=== PATIENT | female | born 1985 | race American Indian/Alaskan Native ===

== ENCOUNTER 2018-02-08 12:38 | Emergency (ER) | payer SELFPAY ==
[2018-02-08 13:25] VITALS: BP 127/93
[2018-02-08] MEDS ORDERED: MOTRIN PO ONE (16:56)
[2018-02-08] MEDS ORDERED: ULTRAM PO ONE (16:57)
[2018-02-08] MEDS ORDERED: ROBAXIN PO ONE (17:00)
[2018-02-08] MEDS ORDERED: TETRACAINE 0.5% OD ONE (17:04)
[2018-02-08] MEDS ORDERED: FUL-GLO OP ONE (17:05)
--- NOTE | 2018-02-08 17:42 | Emergency Department Report ---
ED Eye Problem HPI - General Chief complaint: Eye Problems Stated complaint: EYE PAIN Time Seen by Provider: 02/08/18 16:52 Source: patient Mode of arrival: Ambulatory Limitations: No Limitations - History of Present Illness Initial comments: 32-year-old female presents to ED with complaints of right eye pain. Patient states she was driving earlier today and felt something fly into her right eye. Patient reports rubbing eye afterward. The patient now reports slight photophobia and blurred vision in right eye. chief complaint: eye pain, eye redness, foreign body -: This afternoon Onset Description: sudden Location: right eye Place: work Eye Symptoms: burning, redness, photophobia Severity: mild Consistency: constant - Related Data Home Medications Medication Instructions Recorded Confirmed Last Taken Ibuprofen [Motrin] 800 mg PO TID PRN 02/11/13 02/11/13 02/11/13 16:00 Previous Rx's Medication Instructions Recorded Last Taken Type Amoxicillin [Trimox CAP] 500 mg PO Q8H #30 capsule 02/11/13 Unknown Rx Erythromycin [Erythromycin Ophth 1 cm OU QID #1 tube 02/08/18 Unknown Rx Oint] Allergies Allergy/AdvReac Type Severity Reaction Status Date / Time No Known Allergies Allergy Verified 02/08/18 13:21 ED Review of Systems ROS: Stated complaint: EYE PAIN Other details as noted in HPI Comment: All other systems reviewed and negative Eyes: eye pain, other (blurred vision) Neurological: denies: headache ED Past Medical Hx - Past Medical History Hx Asthma: Yes - Social History Smoking Status: Never Smoker Substance Use Type: None - Medications Home Medications: Home Medications Medication Instructions Recorded Confirmed Last Taken Type Amoxicillin [Trimox CAP] 500 mg PO Q8H #30 capsule 02/11/13 Unknown Rx Ibuprofen [Motrin] 800 mg PO TID PRN 02/11/13 02/11/13 02/11/13 16:00 History Erythromycin [Erythromycin Ophth 1 cm OU QID #1 tube 02/08/18 Unknown Rx Oint] ED Physical Exam - General Limitations: No Limitations General appearance: alert, in no apparent distress - Head Head exam: Present: atraumatic, normocephalic - Eye Eye exam: Present: PERRL, EOMI, conjunctival injection (in right eye), other ( no foreign body present in eye; Rojas lamp exam w/ fluorescin stain shows scleral abrasion, no photophobia on exam) Pupils: Present: normal accommodation - ENT ENT exam: Present: mucous membranes moist - Neck Neck exam: Present: normal inspection - Respiratory Respiratory exam: Present: normal lung sounds bilaterally. Absent: respiratory distress - Cardiovascular Cardiovascular Exam: Present: regular rate, normal rhythm - GI/Abdominal GI/Abdominal exam: Present: soft. Absent: tenderness - Extremities Exam Extremities exam: Present: normal inspection - Neurological Exam Neurological exam: Present: alert, oriented X3 - Psychiatric Psychiatric exam: Present: normal affect, normal mood - Skin Skin exam: Present: warm, dry, intact, normal color ED Course Vital Signs 02/08/18 13:21 Temperature 98.7 F Pulse Rate 75 Respiratory 18 Rate Blood Pressure 127/93 O2 Sat by Pulse 98 Oximetry ED Medical Decision Making - Differential Diagnosis corneal abrasion, conjunctivitis, acute iritis Critical care attestation.: If time is entered above; I have spent that time in minutes in the direct care of this critically ill patient, excluding procedure time. ED Disposition Clinical Impression: Abrasion of sclera of right eye Disposition: DC-01 TO HOME OR SELFCARE Is pt being admited?: No Condition: Stable Instructions: Corneal Abrasion (ED) Prescriptions: Erythromycin [Erythromycin Ophth Oint] 1 cm OU QID #1 tube Referrals: PRIMARY CARE,MD [Primary Care Provider] - 3-5 Days Forms: Work/School Release Form(ED) Time of Disposition: 17:58
== END 2018-02-08 18:03 | disposition home or self-care (01) ==
LOC: ED 12:38
DX: S00.211A Abrasion of right eyelid and periocular area, initial encounter (principal); J45.909 Unspecified asthma, uncomplicated; W22.8XXA Striking against or struck by other objects, initial encounter; Y93.I9 Activity, other involving external motion; Y99.0 Civilian activity done for income or pay; Y92.69 Other specified industrial and construction area as the place of occurrence of the external cause
CPT/HCPCS: 99283

== ENCOUNTER 2018-10-03 14:56 | Emergency (ER) | payer BC ==
[2018-10-03 15:23] VITALS: BP 165/96
--- NOTE | 2018-10-03 15:23 | Emergency Department Report ---
Blank Doc - Documentation Documentation: 33 Y/O FEMALE PRESENTS TO ED C/O RIGHT FLANK PAIN WITH INCREASED URINARY FREQU ENCY PRECEDED BY DIARRHEA. NO FEVER OR CHEST. NO SOB.
[2018-10-03 15:51] LABS: Basophils # (Auto) 0.1 K/mm3 (0.0-0.1); Basophils % (Auto) 0.9 % (0.0-1.8); Eosinophils # (Auto) 0.5 K/mm3 (0.0-0.4); Hematocrit 41.8 % (30.3-42.9); Hemoglobin 13.9 gm/dl (10.1-14.3); Lymphocytes # (Auto) 1.8 K/mm3 (1.2-5.4); Lymphocytes % (Auto) 23.9 % (13.4-35.0); Mean Corpuscular HGB Conc 33 % (30-34); Mean Corpuscular Volume 89 fl (79-97); Monocytes # (Auto) 0.7 K/mm3 (0.0-0.8); Monocytes % (Auto) 9.6 % (0.0-7.3); Platelet Count 521 K/mm3 (140-440); Red Blood Count 4.68 M/mm3 (3.65-5.03); Red Cell Distribution Width 13.8 % (13.2-15.2)
[2018-10-03 16:13] LABS: Alanine Aminotransferase 13 units/L (7-56); Albumin 4.2 g/dL (3.9-5); BUN/Creatinine Ratio 16; Blood Urea Nitrogen 13 mg/dL (7-17); Hemolysis Index 34
[2018-10-03 16:57] LABS: Bacteria,Urine 1+ /HPF (Negative); Bilirubin,Urine NEG (Negative); Blood,Urine MOD (Negative); Color,Urine Yellow (Yellow); Mucus,Urine 1+ /HPF; Protein,Urine <15 mg/dL mg/dL (Negative)
[2018-10-03 17:04] LABS: HCG Qualitative,Urine Negative (Negative)
[2018-10-03] MEDS ORDERED: TORADOL IM ONE (18:57)
--- NOTE | 2018-10-03 19:03 | Emergency Department Report ---
ED Female HPI - General Chief complaint: Abdominal Pain Stated complaint: RT SIDE PAIN Time Seen by Provider: 10/03/18 15:20 Source: patient Mode of arrival: Ambulatory Limitations: No Limitations - History of Present Illness Initial comments: pt is s 33 y/o aaf who presents for urinary frequency and urgency x 3 days with mild right flank pain there is no hematuria no vaginal discharge no n/v no hx of renal stones. MD Complaint: dysuria Onset/Timin -: days(s) Severity: mild Severity scale (0 -10): 2 Quality: other (stinging ) Consistency: intermittent Improves with: none Worsens with: urination Are you Now?: No Last Menstrual Period: 09/27/18 EDC: 07/04/19 Associated Symptoms: dysuria - Related Data Sexually active: Yes Home Medications Medication Instructions Recorded Confirmed Last Taken Ibuprofen [Motrin] 800 mg PO TID PRN 02/11/13 02/11/13 02/11/13 16:00 Previous Rx's Medication Instructions Recorded Last Taken Type Amoxicillin [Trimox CAP] 500 mg PO Q8H #30 capsule 02/11/13 Unknown Rx Erythromycin [Erythromycin Ophth 1 cm OU QID #1 tube 02/08/18 Unknown Rx Oint] Ibuprofen 800 mg PO TID PRN #30 tablet 10/03/18 Unknown Rx Nitrofurantoin Monohyd/M-Cryst 100 mg PO BID 7 Days #14 capsule 10/03/18 Unknown Rx [Macrobid 100 mg Capsule] Allergies Allergy/AdvReac Type Severity Reaction Status Date / Time No Known Allergies Allergy Verified 02/08/18 13:21 ED Review of Systems ROS: Stated complaint: RT SIDE PAIN Other details as noted in HPI Constitutional: denies: chills, fever Eyes: denies: eye pain, eye discharge, vision change ENT: denies: ear pain, throat pain Respiratory: denies: cough, shortness of breath, wheezing Cardiovascular: denies: chest pain, palpitations Endocrine: no symptoms reported Gastrointestinal: denies: abdominal pain, nausea, diarrhea Genitourinary: urgency, dysuria, frequency. denies: hematuria, discharge, abnormal menses, dyspareunia Musculoskeletal: denies: back pain, joint swelling, arthralgia Skin: denies: rash, lesions Neurological: denies: headache, weakness, paresthesias Psychiatric: denies: anxiety, depression Hematological/Lymphatic: denies: easy bleeding, easy bruising ED Past Medical Hx - Past Medical History Previous Medical History?: Yes Hx Asthma: Yes - Surgical History Past Surgical History?: No - Social History Smoking Status: Never Smoker Substance Use Type: None - Medications Home Medications: Home Medications Medication Instructions Recorded Confirmed Last Taken Type Amoxicillin [Trimox CAP] 500 mg PO Q8H #30 capsule 02/11/13 Unknown Rx Ibuprofen [Motrin] 800 mg PO TID PRN 02/11/13 02/11/13 02/11/13 16:00 History Erythromycin [Erythromycin Ophth 1 cm OU QID #1 tube 02/08/18 Unknown Rx Oint] Ibuprofen 800 mg PO TID PRN #30 tablet 10/03/18 Unknown Rx Nitrofurantoin Monohyd/M-Cryst 100 mg PO BID 7 Days #14 capsule 10/03/18 Unknown Rx [Macrobid 100 mg Capsule] ED Physical Exam - General Limitations: No Limitations General appearance: alert, in no apparent distress - Head Head exam: Present: atraumatic, normocephalic - Eye Eye exam: Present: normal appearance, PERRL - ENT ENT exam: Present: mucous membranes moist - Neck Neck exam: Present: normal inspection - Respiratory Respiratory exam: Present: normal lung sounds bilaterally. Absent: respiratory distress - Cardiovascular Cardiovascular Exam: Present: regular rate, normal rhythm, normal heart sounds. Absent: systolic murmur, diastolic murmur, rubs, gallop - GI/Abdominal GI/Abdominal exam: Present: soft, normal bowel sounds. Absent: tenderness, guarding, rebound, rigid, bruit, hernia - Rectal Rectal exam: Present: deferred - Extremities Exam Extremities exam: Present: normal inspection, full ROM - Back Exam Back exam: Present: normal inspection, full ROM. Absent: tenderness, CVA tenderness (R), CVA tenderness (L), rash noted - Neurological Exam Neurological exam: Present: alert, oriented X3, CN II-XII intact, normal gait - Psychiatric Psychiatric exam: Present: normal affect - Skin Skin exam: Present: warm, dry, intact, normal color. Absent: rash ED Course Vital Signs 10/03/18 15:21 Temperature 98.3 F Pulse Rate 68 Respiratory 18 Rate Blood Pressure 165/96 O2 Sat by Pulse 96 Oximetry ED Medical Decision Making - Lab Data Result diagrams: 10/03/18 15:29 10/03/18 15:29 Labs 10/03/18 10/03/18 10/03/18 15:29 15:29 16:05 WBC 7.6 RBC 4.68 Hgb 13.9 Hct 41.8 MCV 89 MCH 30 MCHC 33 RDW 13.8 Plt Count 521 H Lymph % (Auto) 23.9 [place] % (Auto) 9.6 H Eos % (Auto) 6.0 H Baso % (Auto) 0.9 Lymph # 1.8 [place] # 0.7 Eos # 0.5 H Baso # 0.1 Seg Neutrophils % 59.6 Seg Neutrophils # 4.5 Sodium 139 Potassium 4.4 Chloride 100.7 Carbon Dioxide 27 Anion Gap 16 BUN 13 Creatinine 0.8 Estimated GFR > 60 BUN/Creatinine Ratio 16 Glucose 81 Calcium 10.0 Total Bilirubin 0.20 AST 16 ALT 13 Alkaline Phosphatase 106 Total Protein 7.6 Albumin 4.2 Albumin/Globulin Ratio 1.2 Lipase 32 Urine Color Yellow Urine Turbidity Slightly-cloudy Urine pH 6.0 Ur Specific [place] 1.028 Urine Protein <15 mg/dl Urine Glucose (UA) Neg Urine Ketones Neg Urine Blood Mod Urine Nitrite Neg Urine Bilirubin Neg Urine Urobilinogen 4.0 Ur Leukocyte Esterase Tr Urine WBC (Auto) 5.0 Urine RBC (Auto) 5.0 U Epithel Cells (Auto) 7.0 Urine Bacteria (Auto) 1+ Urine Mucus 1+ Urine HCG, Qual Negative - Medical Decision Making Ua: mild leuk, wbc, rbc, bacteria, hcg: neg , urinary frequency plan: macrobid ibuprofen, follow up with pcp in 2-3 days return to ed if symptoms worsen. Critical care attestation.: If time is entered above; I have spent that time in minutes in the direct care of this critically ill patient, excluding procedure time. ED Disposition Clinical Impression: UTI (urinary tract infection) Qualifiers: Urinary tract infection type: acute cystitis Hematuria presence: without hematuria Qualified Code(s): N30.00 - Acute cystitis without hematuria Disposition: TO HOME OR SELFCARE Is pt being admited?: No Does the pt Need Aspirin: No Condition: Stable Instructions: Abdominal Pain (ED) Prescriptions: Ibuprofen 800 mg PO TID PRN #30 tablet PRN Reason: pain Nitrofurantoin Monohyd/M-Cryst [Macrobid 100 mg Capsule] 100 mg PO BID 7 Days #14 capsule Referrals: [facility] [Outside] - 3-5 Days Forms: Work/School Release Form(ED) Time of Disposition: 19:10
[2018-10-03] MEDS ORDERED: IBUPROFEN PO ONE (19:10)
[2018-10-03] MEDS ORDERED: IBUPROFEN ONE (19:10)
== END 2018-10-03 19:26 | disposition home or self-care (01) ==
LOC: ED 14:56
DX: N30.00 Acute cystitis without hematuria (principal); J45.909 Unspecified asthma, uncomplicated
CPT/HCPCS: 36415; 80053; 81001; 81025; 83690; 85025; 99283; J1885

== ENCOUNTER 2019-05-14 21:41 | Emergency (ER) | payer BC ==
[2019-05-15 01:48] LABS: Basophils # (Auto) 0.1 K/mm3 (0.0-0.1); Basophils % (Auto) 1.2 % (0.0-1.8); Eosinophils # (Auto) 0.5 K/mm3 (0.0-0.4); Eosinophils % (Auto) 6.6 % (0.0-4.3); Hematocrit 42.1 % (30.3-42.9); Hemoglobin 14.1 gm/dl (10.1-14.3); Lymphocytes # (Auto) 2.4 K/mm3 (1.2-5.4); Lymphocytes % (Auto) 29.6 % (13.4-35.0); Mean Corpuscular HGB Conc 34 % (30-34); Mean Corpuscular Volume 88 fl (79-97); Monocytes # (Auto) 0.7 K/mm3 (0.0-0.8); Monocytes % (Auto) 8.4 % (0.0-7.3); Platelet Count 481 K/mm3 (140-440); Red Blood Count 4.77 M/mm3 (3.65-5.03); Red Cell Distribution Width 14.6 % (13.2-15.2)
[2019-05-15] MEDS ORDERED: medroxyPROGESTERone ACETATE 5 MG TAB PO SCH (03:00)
--- NOTE | 2019-05-15 05:26 | Emergency Department Report ---
ED Female HPI - General Chief complaint: Vaginal Bleeding Stated complaint: HAVE NOT BEEN ON CYCLE FOR A MONTH Source: patient Mode of arrival: Ambulatory Limitations: No Limitations - History of Present Illness Initial comments: Patient is a nulliparous 33-year-old -Citizen Of [place] female with no past medical history who presents to the ED with persistent heavy vaginal bleeding for the last 2 months. Patient states that she is not on any control. Patient denies abdominal pain, dysuria, urinary frequency and urgency, headache, chest pain, shortness of breath, dizziness, vaginal discharge, low back pain, fever, chills, cough or sore throat. MD Complaint: vaginal bleeding -: Gradual, month(s) (2) Location: other (vaginal) Radiation: non-radiating Severity: moderate Quality: cramping, dull, aching Consistency: intermittent Improves with: none Worsens with: none Are you Now?: No Associated Symptoms: denies other symptoms, vaginal bleeding. denies: vaginal discharge, abdominal pain, nausea/vomiting, headaches, loss of appetite, dysuria, hematuria, rash, seizure, shortness of breath, other - Related Data Sexually active: Yes : 0 Para: 0 A: 0 Home Medications Medication Instructions Recorded Confirmed Last Taken Ibuprofen [Motrin] 800 mg PO TID PRN 02/11/13 02/11/13 02/11/13 16:00 Previous Rx's Medication Instructions Recorded Last Taken Type Amoxicillin [Trimox CAP] 500 mg PO Q8H #30 capsule 02/11/13 Unknown Rx Erythromycin [Erythromycin Ophth 1 cm OU QID #1 tube 02/08/18 Unknown Rx Oint] Ibuprofen [Ibuprofen 800] 800 mg PO TID PRN #30 tablet 10/03/18 Unknown Rx Nitrofurantoin Monohyd/M-Cryst 100 mg PO BID 7 Days #14 capsule 10/03/18 Unknown Rx [Macrobid 100 mg Capsule] medroxyPROGESTERone ACETATE 10 mg PO DAILY #10 tablet 05/15/19 Unknown Rx [Medroxyprogesterone Acetate] Allergies Allergy/AdvReac Type Severity Reaction Status Date / Time No Known Allergies Allergy Verified 02/08/18 13:21 ED Review of Systems ROS: Stated complaint: HAVE NOT BEEN ON CYCLE FOR A MONTH Other details as noted in HPI Constitutional: denies: chills, fever Eyes: denies: eye pain, eye discharge, vision change ENT: denies: ear pain, throat pain Respiratory: denies: cough, shortness of breath, wheezing Cardiovascular: denies: chest pain, palpitations Endocrine: no symptoms reported Gastrointestinal: denies: abdominal pain, nausea, diarrhea Genitourinary: abnormal menses (vaginal bleeding). denies: urgency, dysuria, discharge Musculoskeletal: denies: back pain, joint swelling, arthralgia Skin: denies: rash, lesions Neurological: denies: headache, weakness, paresthesias Psychiatric: denies: anxiety, depression Hematological/Lymphatic: denies: easy bleeding, easy bruising ED Past Medical Hx - Past Medical History Previous Medical History?: Yes Hx Asthma: Yes Additional medical history: Obesity - Surgical History Past Surgical History?: No - Social History Smoking Status: Current Some Day Smoker Substance Use Type: None - Medications Home Medications: Home Medications Medication Instructions Recorded Confirmed Last Taken Type Amoxicillin [Trimox CAP] 500 mg PO Q8H #30 capsule 02/11/13 Unknown Rx Ibuprofen [Motrin] 800 mg PO TID PRN 02/11/13 02/11/13 02/11/13 16:00 History Erythromycin [Erythromycin Ophth 1 cm OU QID #1 tube 02/08/18 Unknown Rx Oint] Ibuprofen [Ibuprofen 800] 800 mg PO TID PRN #30 tablet 10/03/18 Unknown Rx Nitrofurantoin Monohyd/M-Cryst 100 mg PO BID 7 Days #14 capsule 10/03/18 Unknown Rx [Macrobid 100 mg Capsule] medroxyPROGESTERone ACETATE 10 mg PO DAILY #10 tablet 05/15/19 Unknown Rx [Medroxyprogesterone Acetate] ED Physical Exam - General Limitations: No Limitations General appearance: alert, in no apparent distress - Head Head exam: Present: atraumatic, normocephalic, normal inspection - Eye Eye exam: Present: normal appearance, PERRL, EOMI Pupils: Present: normal accommodation - ENT ENT exam: Present: normal exam, normal orophraynx, mucous membranes moist, TM's normal bilaterally, normal external ear exam - Neck Neck exam: Present: normal inspection, full ROM - Respiratory Respiratory exam: Present: normal lung sounds bilaterally. Absent: respiratory distress, wheezes, rhonchi, stridor, chest wall tenderness, accessory muscle use, decreased breath sounds - Cardiovascular Cardiovascular Exam: Present: regular rate, normal rhythm, normal heart sounds. Absent: systolic murmur, diastolic murmur, rubs, gallop - GI/Abdominal GI/Abdominal exam: Present: soft, normal bowel sounds. Absent: tenderness, guarding, rebound, hyperactive bowel sounds, hypoactive bowel sounds, organomegaly - Bi-manual exam: Present: other (patient declined pelvic exam) - Extremities Exam Extremities exam: Present: normal inspection, full ROM, normal capillary refill - Back Exam Back exam: Present: normal inspection, full ROM. Absent: muscle spasm - Neurological Exam Neurological exam: Present: alert, oriented X3, CN II-XII intact, normal gait, reflexes normal - Psychiatric Psychiatric exam: Present: normal affect, normal mood - Skin Skin exam: Present: warm, dry, intact, normal color. Absent: rash ED Course Vital Signs 05/14/19 05/15/19 21:48 02:05 Temperature 98.2 F Pulse Rate 83 Respiratory 18 18 Rate Blood Pressure 139/85 O2 Sat by Pulse 97 Oximetry ED Medical Decision Making - Lab Data Result diagrams: 05/15/19 01:23 - Medical Decision Making This is a 33-year-old Citizen Of [place] female who is nulliparous and presented to the ED with persistent vaginal bleeding for 2 months. In the ED, patient is alert and oriented 3 and is not in distress. Lab test results show negative hCG test by urine. Other lab test results are nonactionable. Patient was treated initially with medroxyprogesterone oral tablet in the ED and was discharged home on medroxyprogesterone progesterone 10 mg daily for 10 days. Patient was advised to follow-up with [facility] [employer] [facility] physician in 7-10 days for reevaluation or return to the ED immediately if symptoms get worse. - Differential Diagnosis Dysfunctional uterine bleeding; Pelvic pain; UTI; Ovarian cyst Critical care attestation.: If time is entered above; I have spent that time in minutes in the direct care of this critically ill patient, excluding procedure time. ED Disposition Clinical Impression: Dysfunctional uterine hemorrhage Disposition: TO HOME OR SELFCARE Is pt being admited?: No Does the pt Need Aspirin: No Condition: Stable Instructions: Dysfunctional Uterine Bleeding (ED) Additional Instructions: Take medication is otherwise, follow-up with your [facility] physician in 7-10 days for reevaluation. Return to the ED immediately if symptoms get worse. Prescriptions: medroxyPROGESTERone ACETATE [Medroxyprogesterone Acetate] 10 mg PO DAILY #10 tablet Forms: Work/School Release Form(ED) Time of Disposition: 05:24 Print Language: LEBANESE
[2019-05-15 05:51] VITALS: BP 124/67
== END 2019-05-15 05:52 | disposition home or self-care (01) ==
LOC: ED 21:41
DX: N93.8 Other specified abnormal uterine and vaginal bleeding (principal); J45.909 Unspecified asthma, uncomplicated; F17.200 Nicotine dependence, unspecified, uncomplicated; Z79.899 Other long term (current) drug therapy
CPT/HCPCS: 36415; 84703; 85025; 86900; 86901

== ENCOUNTER 2021-08-18 14:28 | Emergency (ER) | payer SELFPAY ==
[2021-08-18 16:31] VITALS: BP 141/82
--- NOTE | 2021-08-18 18:39 | Emergency Department Report ---
ED General Adult HPI - General Chief complaint: Dental/Oral Stated complaint: TOOTH PAIN Source: patient Mode of arrival: Ambulatory Limitations: No Limitations - History of Present Illness Initial comments: Patient is a 36-year-old -[place] female with a history of asthma who presents to the ED with complaint of acute onset persistent left mandibular premolar molar toothache with swollen gums for the last 1 week, worse in the last 2 days. Patient states that she contacted her dentist who gave her a schedule visit to his office in 2 weeks time. Patient however states that in the last 24 hours, she has not been able to sleep or eat because of worsening pain. Patient denies dizziness, syncope, headache, chest pain, shortness of breath, fever, chills, sore throat, traumatic injury, nausea and vomiting or diarrhea and abdominal pain or neck pain. MD Complaint: left mandibular premolar and molar toothache; swollen gums -: Sudden, week(s) (1) Location: mouth Radiation: non-radiation Severity scale (0 -10): 7 Quality: aching, sharp Consistency: constant Improves with: none Worsens with: none Associated Symptoms: denies other symptoms. denies: confusion, chest pain, cough, diaphoresis, fever/chills, headaches, loss of appetite, malaise, nausea/vomiting, rash, seizure, shortness of breath, syncope, weakness Treatments Prior to Arrival: none - Related Data Home Medications Medication Instructions Recorded Confirmed Last Taken Ibuprofen [Motrin] 800 mg PO TID PRN 02/11/13 02/11/13 02/11/13 16:00 Previous Rx's Medication Instructions Recorded Last Taken Type Amoxicillin [Trimox CAP] 500 mg PO Q8H #30 capsule 02/11/13 Unknown Rx Erythromycin [Erythromycin Ophth 1 cm OU QID #1 tube 02/08/18 Unknown Rx Oint] Ibuprofen [Ibuprofen 800] 800 mg PO TID PRN #30 tablet 10/03/18 Unknown Rx Nitrofurantoin Monohyd/M-Cryst 100 mg PO BID 7 Days #14 capsule 10/03/18 Unknown Rx [Macrobid 100 mg Capsule] medroxyPROGESTERone ACETATE 10 mg PO DAILY #10 tablet 05/15/19 Unknown Rx [Medroxyprogesterone Acetate] Clindamycin [Clindamycin CAP] 300 mg PO Q8H #30 cap 08/18/21 Unknown Rx Ketorolac [Toradol] 10 mg PO Q8H PRN #20 tab 08/18/21 Unknown Rx traMADoL [Ultram] 50 mg PO Q6HR PRN #12 tablet 08/18/21 Unknown Rx Allergies Allergy/AdvReac Type Severity Reaction Status Date / Time No Known Allergies Allergy Verified 02/08/18 13:21 ED Review of Systems ROS: Stated complaint: TOOTH PAIN Other details as noted in HPI Constitutional: denies: chills, fever Eyes: denies: eye pain, eye discharge, vision change ENT: dental pain (Left mandibular premolar and molar toothache with swollen painful gums). denies: ear pain, throat pain Respiratory: denies: cough, shortness of breath, wheezing Cardiovascular: denies: chest pain, palpitations Endocrine: no symptoms reported Gastrointestinal: denies: abdominal pain, nausea, diarrhea Genitourinary: denies: urgency, dysuria, discharge Musculoskeletal: denies: back pain, joint swelling, arthralgia Skin: denies: rash, lesions Neurological: denies: headache, weakness, paresthesias Psychiatric: denies: anxiety, depression Hematological/Lymphatic: denies: easy bleeding, easy bruising ED Past Medical Hx - Past Medical History Previous Medical History?: Yes Hx Asthma: Yes Additional medical history: Obesity - Social History Smoking Status: Current Every Day Smoker Substance Use Type: Alcohol - Medications Home Medications: Home Medications Medication Instructions Recorded Confirmed Last Taken Type Amoxicillin [Trimox CAP] 500 mg PO Q8H #30 capsule 02/11/13 Unknown Rx Ibuprofen [Motrin] 800 mg PO TID PRN 02/11/13 02/11/13 02/11/13 16:00 History Erythromycin [Erythromycin Ophth 1 cm OU QID #1 tube 02/08/18 Unknown Rx Oint] Ibuprofen [Ibuprofen 800] 800 mg PO TID PRN #30 tablet 10/03/18 Unknown Rx Nitrofurantoin Monohyd/M-Cryst 100 mg PO BID 7 Days #14 capsule 10/03/18 Unknown Rx [Macrobid 100 mg Capsule] medroxyPROGESTERone ACETATE 10 mg PO DAILY #10 tablet 05/15/19 Unknown Rx [Medroxyprogesterone Acetate] Clindamycin [Clindamycin CAP] 300 mg PO Q8H #30 cap 08/18/21 Unknown Rx Ketorolac [Toradol] 10 mg PO Q8H PRN #20 tab 08/18/21 Unknown Rx traMADoL [Ultram] 50 mg PO Q6HR PRN #12 tablet 08/18/21 Unknown Rx ED Physical Exam - General Limitations: No Limitations General appearance: alert, in no apparent distress - Head Head exam: Present: atraumatic, normocephalic, normal inspection - Eye Eye exam: Present: normal appearance, PERRL, EOMI Pupils: Present: normal accommodation - ENT ENT exam: Present: mucous membranes moist, TM's normal bilaterally, normal external ear exam, other (Swollen, tender left mandibular gingiva with tender left mandibular premolar and molar teeth) - Neck Neck exam: Present: normal inspection, full ROM, lymphadenopathy - Respiratory Respiratory exam: Present: normal lung sounds bilaterally. Absent: respiratory distress, wheezes, rales, chest wall tenderness, accessory muscle use, decreased breath sounds, prolonged expiratory - Cardiovascular Cardiovascular Exam: Present: regular rate, normal rhythm, normal heart sounds. Absent: systolic murmur, diastolic murmur, rubs, gallop - GI/Abdominal GI/Abdominal exam: Present: soft, normal bowel sounds. Absent: tenderness, guarding, rebound, rigid, hyperactive bowel sounds, hypoactive bowel sounds, organomegaly - Extremities Exam Extremities exam: Present: normal inspection, full ROM, normal capillary refill. Absent: tenderness - Back Exam Back exam: Present: normal inspection, full ROM. Absent: tenderness, CVA tenderness (R), CVA tenderness (L), muscle spasm - Neurological Exam Neurological exam: Present: alert, oriented X3, CN II-XII intact, normal gait, reflexes normal - Psychiatric Psychiatric exam: Present: normal affect, normal mood - Skin Skin exam: Present: warm, dry, intact, normal color. Absent: rash ED Course Vital Signs 08/18/21 16:30 Temperature 97.7 F Pulse Rate 68 Respiratory 18 Rate Blood Pressure 141/82 [Right] O2 Sat by Pulse 98 Oximetry ED Medical Decision Making - Medical Decision Making This is a 36-year-old -[place] female with a history of asthma who presents to the ED with complaint of acute onset persistent left mandibular premolar molar toothache with swollen gums for the last 1 week, worse in the last 2 days. Patient states that she contacted her dentist who gave her a schedule visit to his office in 2 weeks time. Patient however states that in the last 24 hours, she has not been able to sleep or eat because of worsening pain. In the ED, patient is alert and oriented x3 and is not in any distress. Patient was discharged home on pain medication and antibiotics and advised to follow-up with her dentist as previously scheduled. Patient is advised return to the ED immediately if symptoms get worse. - Differential Diagnosis dental abscess; gingivitis; dental caries Critical care attestation.: If time is entered above; I have spent that time in minutes in the direct care of this critically ill patient, excluding procedure time. ED Disposition Clinical Impression: Dental abscess, Acute gingivitis, Dental caries Disposition: HOME / SELF CARE / HOMELESS Is pt being admited?: No Does the pt Need Aspirin: No Condition: Stable Instructions: Dental Abscess, [id number], Trench Mouth Additional Instructions: Take medication with food, drink plenty of fluids and follow-up with your primary care physician or dentist in 7 to 10 days for reevaluation. Return to the ED immediately if symptoms get worse. Prescriptions: Clindamycin [Clindamycin CAP] 300 mg PO Q8H #30 cap Ketorolac [Toradol] 10 mg PO Q8H PRN #20 tab PRN Reason: Pain traMADoL [Ultram] 50 mg PO Q6HR PRN #12 tablet PRN Reason: Pain Referrals: [facility] [Outside] - 7-10 days Forms: Work/School Release Form(ED) Time of Disposition: 18:40 Print Language: DOMINICAN
== END 2021-08-18 19:30 | disposition home or self-care (01) ==
LOC: ED 14:28
DX: K04.7 Periapical abscess without sinus (principal); K05.00 Acute gingivitis, plaque induced; K02.9 Dental caries, unspecified; J45.909 Unspecified asthma, uncomplicated; F17.200 Nicotine dependence, unspecified, uncomplicated; Z72.89 Other problems related to lifestyle; Z79.899 Other long term (current) drug therapy
CPT/HCPCS: 99282